=== PATIENT | female | born 2000 | race Caucasian/White ===

== ENCOUNTER 2023-06-15 08:28 | Outpatient (REF) | payer BC, SELFPAY ==
--- NOTE | ~2023-06-15 | US_ITS ---
EXAMINATION: US PELVIS CLINICAL INFORMATION: Oligomenorrhea; the last menstrual period was on 05/19/2023. COMPARISON: None available. TECHNIQUE: Ultrasound of the pelvis is performed using both transabdominal and transvaginal transducers along with Doppler. Transvaginal imaging is performed due to inadequate visualization transabdominally. FINDINGS: Uterus: The uterus is anteverted and measures 8.1 x 3.2 x 4.7 cm. The double wall endometrial thickness is 7 mm. The uterus is smooth in contour and has normal myometrial echogenicity. No visible fibroid. Adnexa: Both ovaries are visualized. There is normal color flow to the adnexa. There is no ovarian torsion. There is no pelvic ascites or fluid collection. Right ovary measures 2.2 x 3.8 x 2.4 cm, volume 10.3 mL. The right ovary contains a 1.4 cm benign, simple follicle, for which no imaging follow-up is recommended. Left ovary measures 3.2 x 2.2 x 2.1 cm, volume 7.7 mL. US/US pelvic and transvaginal IMPRESSION: Unremarkable examination.
== END 2023-06-15 08:29 | disposition home or self-care (01) ==
LOC: HO.UMASIMG 08:28
PROVIDERS: Visit Provider Nurse Practitioner Family
DX: N91.3 Primary oligomenorrhea (principal)
CPT/HCPCS: 76830; 76856